=== PATIENT | male | born 1985 | race Caucasian/White ===

== ENCOUNTER 2020-07-11 11:00 | Outpatient (RCR) | payer MEDICAID, OTHER, SELFPAY ==
--- NOTE | 2020-06-06 09:19 | STOPEVAL ---
SPEECH THERAPY INITIAL EVALUATION: Thank you for referring Raghav Doran to [facility].?Overall, the pt presents with severe fluency/stutter disorder. Therapy is recommended x2 week 6 ; however, at this time, he is scheduled to be seen for therapy?1x/week due to job schedule. If schedule changes pt will attend the recommended x2/week x 6 weeks. Please review, sign, date and return this plan of care ALEX. I agree with and certify that the following plan of care is medically necessary. Referring Physician Date Attending Provider: Ernesto Noel, * Outpatient Evaluation Start: 06/03/20 13:14 Freq: Status: Active Protocol: Document 06/03/20 11:00 GEORGE (Rec: 06/04/20 17:26 [email or web address] Therapy Assessment Status Assessment Status Assessment Status Evaluation Outpatient Past Medical History Psychosocial History Hx Recent Lifestyle Changes Yes: released from correction 2019 Hx Other Psychiatric Disorders Yes: drug abuse Evaluation Information Problem Diagnosis Fluency disorder/stuttering Onset childhood but worsening Additional Evaluation Detail Pt reports having been a stutterer since childhood; however, states that it appears to be worsening. Pt was recently released from correction on May having been incarcerated related to drugs. Pt states he wants to improve his life and lifestyle and is currently staying at [facility], a [facility] in [place], [place]. He reports that he must participate in group sessions that require him to speak as well as read to 12-13 people. He states that he feels humiliated and anxious when doing so due to the increasing severity of his stuttering. Pt reports drug abuse starting at 15 years old, dropping out of school at 17 and subsequently in and out of correction 3-4 times. During incarceration, pt completed his GED and achieved 37 college credits. 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
--- NOTE | 2020-07-08 13:10 | PCSTNOTE ---
Patient did not show up for scheduled appointment on 07-04-20; upon calling the [facility] where pt lives, ST was informed that there was somewhat of an emergency at the house and he couldn't make it. Pt's next appt was confirmed and verified that he would be here.
--- NOTE | 2020-07-11 12:39 | PCSTNOTE ---
Patient did not show up for scheduled appointment this date. Pt was called at the [facility] where he lives. He stated he was having problems there and he has had to talk to his counselor the past 2 Fridays. He was informed that he has an appt next Tuesday. Pt stated, I will definitely be there
--- NOTE | 2020-07-21 16:18 | PCSTNOTE ---
Patient did not show up for scheduled appointment on 07-18-20. Pt called after appointment wanting to speak to this RN RESIDENTIAL whom was not present. Upon calling pt back, he did not answer phone; phone did not have a voicemail.
--- NOTE | 2020-07-23 10:25 | PCSTNOTE ---
Another attempt was made by ST to contact the pt regarding continuing therapy. Contact was attempted via the phone # pt left for call back [phone]. Pt again did not answer and with no voicemail available.
--- NOTE | 2020-07-23 10:28 | PCSTNOTE ---
SPEECH THERAPY DISCHARGE: Attending Provider: Ernesto Noel, Patient:Raghav Doran Date of :1985 Patient has not returned for any further treatments since 06/27/2020, attempts have been made to contact the pt in order to continue therapy;however, pt has not answered calls. Therefore, he will be discharged at this time. Patient?s initial visit was on 06/03/2020 11:00 and he had a total of 3 visits. The goals have not been met. Thank you for referring this patient to [facility]. Please review, sign, date and return this discharge summary ALEX. I have been updated about the patient's current status and I agree with discharge from the above service at this time. Referring Physician Date
== END 2020-07-23 12:47 | disposition home or self-care (01) ==
LOC: ANHST 11:00
PROVIDERS: PCP Internal Medicine; Visit Provider Internal Medicine
DX: F80.81 Childhood onset fluency disorder (principal)
CPT/HCPCS: 92507; 92521

== ENCOUNTER 2020-10-01 15:53 | Emergency (ER) | payer BC, SELFPAY ==
--- NOTE | ~2020-10-01 | XR_ITS ---
EXAMINATION: XR chest 1V portable INDICATION: Cough and shortness of breath TECHNIQUE: Portable AP chest at 1643 hours COMPARISON: None available FINDINGS: Lung volumes are low. There are patchy bilateral airspace opacities. There is no pleural ef fusion or pneumothorax. The cardiomediastinal silhouette is normal. IMPRESSION: 1. Diffuse lung disease, consistent with pneumonia and/or pulmonary edema and/or atelectasis. Reviewed, dictated and finalized at location A. [employer] IMPRESSION: 1. Diffuse lung disease, consistent with pneumonia and/or pulmonary edema and/o r atelectasis.
[2020-10-01 16:27] VITALS: BP 139/92; PULSE 98; RESP 18; TEMP 36.3; O2SAT 97
--- NOTE | 2020-10-01 17:34 | PC.NURSE ---
PT AMBULATED, MAINTAINED OXYGEN SATURATION OF 96-98%. PA NOTIFIED.
[2020-10-01] MEDS: ALBUTEROL SULFATE (*SP) AEROSOL 1 PUFF 6 PUFF INHALATION (17:51)
[2020-10-01] MEDS: KETOROLAC 15 MG/ML VIAL (*BKC) IV PUSH (18:08)
[2020-10-01] MEDS: SODIUM CHLORIDE 0.9% IV 1,000 ML 999 ML IV CONT (18:09)
[2020-10-01 18:16] LABS: Basophils Percent Auto 0.6 % (0.2-1.2); Eosinophils Absolute Auto 0.1 K/mm3 (0-0.3); Eosinophils Percent Auto 1.5 % (0-4.4); Hematocrit 50.5 % (42.0-52.0); Hemoglobin 16.9 g/dL (14.0-18.0); Immature Granulocyte Absolute 0.03 K/mm3 (0.00-0.031); Immature Granulocyte Percent A 0.4 % (0-0.5); Lymphocytes Absolute Auto 2.15 K/mm3 (0.9-3.2); Lymphocytes Percent Auto 31.4 % (18.3-44.2); Mean Corpuscular HGB Conc 33.5 g/dl (32-36); Mean Corpuscular Hemoglobin 32.1 pg (26-34); Mean Corpuscular Volume 95.8 fl (80-100); Mean Platelet Volume 9.3 fl (7.4-10.4); Monocytes Absolute Auto 0.8 K/mm3 (0.1-0.6); Monocytes Percent Auto 10.9 % (2.6-8.5); Neutrophils Absolute Auto 3.8 K/mm3 (1.3-6.7); Neutrophils Percent Auto 55.2 % (45.5-73.1); Platelet Count Result 225 k/mm3 (150-375); Red Blood Count 5.27 M/mm3 (4.6-6.20); Red Cell Distribution Width 12.6 % (11.5-14.5); White Blood Count 6.9 K/mm3 (4.5-10.0)
[2020-10-01 18:23] LABS: Alanine Aminotransferase 65 U/L (4-50); Albumin Level 4.3 g/dL (3.5-5.1); Alkaline Phosphatase 126 U/L (38-126); Anion Gap 6 mmol/L (8-16); Aspartate Amino Transferase 45 U/L (17-59); Bilirubin,Total 0.3 mg/dL (0.2-1.3); Blood Urea Nitrogen 15 mg/dL (9-20); Calcium 9.4 mg/dL (8.4-10.2); Carbon Dioxide 31 mmol/L (22-30); Chloride 103 mmol/L (98-107); Estimated CRCL calculation 114 ml/min; Estimated Glomerular Filt Rate > 60; Glucose 120 mg/dL (75-110); Potassium 4.1 mmol/L (3.4-5.0); Sodium 140 mmol/L (137-145)
[2020-10-01 18:30] VITALS: BP 144/74; PULSE 101; RESP 17; O2SAT 96
--- NOTE | 2020-10-01 18:42 | ED.GENADULT ---
HPI - General Adult General Chief complaint: Shortness of Breath/Dyspnea Stated complaint: fever, SOB, body aches Time Seen by Provider: 10/01/20 16:26 Source: patient Mode of arrival: ambulatory Limitations: no limitations History of Present Illness HPI narrative: Patient presents with chief complaint of shortness of breath, fever, body aches over the past week. Patient states that he has been exposed to Covid both in his home and at work. Patient states that as a child he did have asthma but he has not had issues as an adult. He denies known COPD. Patient reports that he is a smoker. Patient reports he is also has some nausea and stomach upset for which she took over prescription of Reglan which helped but now he is out. Patient denies chest pain, syncope, pain with inspiration. Related Data Allergies Allergy/AdvReac Type Severity Reaction Status Date / Time trazodone Allergy Unknown Verified 10/01/20 16:29 Review of Systems Review of Systems: Narrative: CONSTITUTIONAL: Reports fever, chills, body aches and sweats. EYES: Denies visual changes, redness, or discharge. ENT: Denies rhinorrhea, congestion, sore throat, or otalgia. CARDIOVASCULAR: Denies chest pain, palpitations, or edema. RESPIRATORY: Reports cough or dyspnea. GASTROINTESTINAL: Denies abdominal pain, nausea, vomiting, or diarrhea. GENITOURINARY: Denies dysuria or hematuria. SKIN: Denies rash or itching. MUSCULOSKELETAL: Denies back pain, joint pain, or myalgia. NEUROLOGIC: Denies headache, numbness, dizziness, or weakness. PSYCHIATRIC: Denies anxiety or depression. [facility] Social History Social History (Updated 10/01/20 @ 18:45 by Ok Ledesma PA-C) Smoking status: Current every day smoker Gender identity (if verbalized by the patient): Male Exam Narrative: Exam Narrative: GENERAL: Well-appearing, well-nourished, and is flushed in appearance. HEAD: Normocephalic, atraumatic. EYES: PERRLA and EOMI. NECK: Supple. No adenopathy or masses. CHEST: Breath sounds are tight diffusely. No tachypnea. Patient taking shallow breaths. No wheezes rales or rhonchi HEART: Regular rate and rhythm. EXTREMITIES: Normal range of motion. No edema. SKIN: Warm, dry, no rash. NEURO: No focal deficits. Alert and oriented x3. PSYCH: Normal mood and affect. Course Vital Signs Vital signs: Vital Signs Temperature 97.3 F L 10/01/20 16:27 Pulse Rate 98 10/01/20 16:27 Respiratory Rate 18 10/01/20 16:27 Blood Pressure 139/92 H 10/01/20 16:27 Pulse Oximetry 97 10/01/20 16:27 Temperature 97.3 F L 10/01/20 16:27 Pulse Rate 101 H 10/01/20 18:30 Respiratory Rate 17 10/01/20 18:30 Blood Pressure 144/74 H 10/01/20 18:30 Pulse Oximetry 96 10/01/20 18:30 Medical Decision Making MDM Narrative Medical decision making narrative: Patient does not have wheezing however his breath sounds are tight in his chest. He has had great improvement with air movement after albuterol and Spiriva treatment. With his history of smoking and stating he has had childhood asthma I am concerned that he may have unfounded COPD due to irregular with PCP visits. As well as how he has responded to the albuterol and steroid treatment. Patient will be discharged. Asked to suspect Covid I am also concerned for underlying bacterial pneumonia especially with patient's tendency to take shallow breaths. Patient is reporting great resolution in his SOB. He reports great improvement in his shortness of breath with the albuterol and steroid treatments. He states he feels comfortable going home. Patient instructed to quarantine as he is a Covid person under investigation. Patient needs to follow-up with his primary care and quarantine as instructed by the health department. Differential Diagnosis Differential Diagnosis: Covid, pneumonia, COPD exacerbation Vital Signs Vital Signs: Vital Signs Temperature 97.3 F L 10/01/20 16:27 Pulse Rate 98 10/01/20 16:27 Respiratory Rat
[2020-10-01] MEDS: methylPREDNISolone SOD SUCC 125 MG VIAL IV PUSH (19:02)
[2020-10-03 01:27] LABS: SARS-CoV-2 RNA PCR Positive
== END 2020-10-01 19:15 | disposition home or self-care (01) ==
PROVIDERS: Physician Assistant; Emergency Provider Emergency Medicine; PCP Internal Medicine
DX: U07.1 COVID-19 (principal); J12.82 Pneumonia due to coronavirus disease 2019; J45.901 Unspecified asthma with (acute) exacerbation; F17.210 Nicotine dependence, cigarettes, uncomplicated
CPT/HCPCS: 36415; 71045; 80053; 85025; 87804; 94640; 96365; 96375; 99284; A9270; C9803; J0131; J1885; J2930; J7030; U0003; U0005

== ENCOUNTER 2020-10-05 14:29 | Emergency (ER) | payer BC, SELFPAY ==
--- NOTE | ~2020-10-05 | XR_ITS ---
EXAMINATION: XR chest 1V portable EXAM DATE: 10/05/2020 15:43 INDICATION: COVID 19. Shortness of breath and worsening symptoms. Cough. TECHNIQUE: Portable AP frontal chest x-ray was obtained. Comparison is made to prior examination from 10/01/2020. FINDINGS: No confluent consolidation, pneumothorax or pleural effusion suspected. Cardiac silhouett e is prominent but magnified on this AP technique. The bones and soft tissues are unremarkable. IMPRESSION: No acute cardiopulmonary findings. Reviewed, dictated and finalized at location A. [facility] [employer]
[2020-10-05 14:49] VITALS: BP 124/78; PULSE 84; RESP 17; TEMP 37.1; O2SAT 98
--- NOTE | 2020-10-05 14:57 | ECG_ITS ---
Measurements Intervals Burton Rate: 79 P: 29 IN: 181 QRS: 7 QRSD: 89 T: 2 QT: 349 QTc: 401 Interpretive Statements SINUS RHYTHM MINIMAL Q WAVES- HIGH LATERAL LEADS BASELINE ARTIFACT- I, III, AVL, V1, V4 BORDERLINE ECG Electronically Signed On 10-05-2020 16:27:25 [employer]ICE PRESIDENT [employer] by Jameson Negrete D.O.
[2020-10-05] MEDS: SODIUM CHLORIDE 0.9% IV 1,000 ML 999 ML IV CONT (15:09)
[2020-10-05 15:16] LABS: Basophils Percent Auto 0.4 % (0.2-1.2); Eosinophils Absolute Auto 0.1 K/mm3 (0-0.3); Eosinophils Percent Auto 1.8 % (0-4.4); Hematocrit 47.3 % (42.0-52.0); Hemoglobin 16.1 g/dL (14.0-18.0); Immature Granulocyte Absolute 0.03 K/mm3 (0.00-0.031); Immature Granulocyte Percent A 0.5 % (0-0.5); Lymphocytes Absolute Auto 1.56 K/mm3 (0.9-3.2); Lymphocytes Percent Auto 27.4 % (18.3-44.2); Mean Corpuscular Hemoglobin 32.2 pg (26-34); Mean Corpuscular Volume 94.6 fl (80-100); Mean Platelet Volume 9.7 fl (7.4-10.4); Monocytes Absolute Auto 0.5 K/mm3 (0.1-0.6); Monocytes Percent Auto 8.3 % (2.6-8.5); Neutrophils Absolute Auto 3.5 K/mm3 (1.3-6.7); Neutrophils Percent Auto 61.6 % (45.5-73.1); Platelet Count Result 192 k/mm3 (150-375); Red Cell Distribution Width 12.5 % (11.5-14.5); White Blood Count 5.7 K/mm3 (4.5-10.0)
[2020-10-05 15:26] LABS: Partial Thromboplastin Time 30.4 SECONDS (22.3-36.8); Prothrombin Time 13.8 Seconds (11.1-14.7)
[2020-10-05 15:28] LABS: Lactic Acid Reflex 1.4 mmol/L (0.7-2.1)
[2020-10-05 15:29] LABS: Anion Gap 4 mmol/L (8-16); Blood Urea Nitrogen 14 mg/dL (9-20); Calcium 8.5 mg/dL (8.4-10.2); Carbon Dioxide 29 mmol/L (22-30); Chloride 105 mmol/L (98-107); Estimated CRCL calculation 118 ml/min; Estimated Glomerular Filt Rate > 60; Glucose 126 mg/dL (75-110); Potassium 3.9 mmol/L (3.4-5.0); Sodium 138 mmol/L (137-145)
[2020-10-05 15:31] LABS: CRP 1.4 mg/dL (<1.0)
[2020-10-05 15:57] LABS: Alanine Aminotransferase 66 U/L (4-50); Alkaline Phosphatase 107 U/L (38-126); Aspartate Amino Transferase 41 U/L (17-59); Bilirubin,Total 0.5 mg/dL (0.2-1.3)
[2020-10-05 16:06] VITALS: BP 129/82; PULSE 72; RESP 20; O2SAT 97
--- NOTE | 2020-10-05 16:22 | ED.GENADULT ---
HPI - General Adult General Chief complaint: Shortness of Breath/Dyspnea Stated complaint: covid +, SOB Time Seen by Provider: 10/05/20 14:50 Source: patient and old records reviewed Mode of arrival: ambulatory Limitations: no limitations History of Present Illness HPI narrative: Patient is a 35-year-old male who presents to emergency department for evaluation of continued shortness of breath body aches intermittent fever has been Covid symptoms for 10 days patient denies diarrhea does note some posttussive emesis patient on arrival to emergency department in no distress was seen in the ER in the last several days was cleared and sent home with inhaler and recommendations for symptom management. On arrival patient in no distress does not appear uncomfortable Related Data Allergies Allergy/AdvReac Type Severity Reaction Status Date / Time trazodone Allergy Unknown Verified 10/05/20 14:49 Review of Systems Review of Systems: All systems reviewed & are unremarkable except as noted in HPI and below PMFSH Social History Social History Smoking status: Current every day smoker Gender identity (if verbalized by the patient): Male Exam Narrative: Exam Narrative: GENERAL: Well-appearing, obese, and in no acute distress. HEAD: Normocephalic, atraumatic. EYES: PERRLA and EOMI. ENT: Nares clear, no rhinorrhea or epistaxis. Mucous membranes moist. CHEST: Clear to auscultation. No respiratory distress. No wheezes rales or rhonchi HEART: Regular rate and rhythm. No murmur heard. Normal peripheral pulses. ABDOMEN: Soft, nontender, nondistended EXTREMITIES: Normal range of motion. No edema. SKIN: Warm, dry, no rash. NEURO: No focal deficits. Alert and oriented x3. PSYCH: Normal mood and affect. Course Course Emergency Course: Patient presented with Covid positive symptoms note obvious distress no pneumonia or other high risk findings no hypoxemia no pneumonia felt appropriate for outpatient reevaluation Vital Signs Vital signs: Vital Signs Temperature 98.7 F 10/05/20 14:49 Pulse Rate 84 10/05/20 14:49 Respiratory Rate 17 10/05/20 14:49 Blood Pressure 124/78 10/05/20 14:49 Pulse Oximetry 98 10/05/20 14:49 Temperature 98.7 F 10/05/20 14:49 Pulse Rate 72 10/05/20 16:06 Respiratory Rate 20 10/05/20 16:06 Blood Pressure 129/82 10/05/20 16:06 Pulse Oximetry 97 10/05/20 16:06 Medical Decision Making MDM Narrative Medical decision making narrative: ABCs and vital signs intact and stable felt appropriate to be discharged home for further evaluation on outpatient basis given reasons to return normal vital signs no distress Vital Signs Vital Signs: Vital Signs Temperature 98.7 F 10/05/20 14:49 Pulse Rate 84 10/05/20 14:49 Respiratory Rate 17 10/05/20 14:49 Blood Pressure 124/78 10/05/20 14:49 Pulse Oximetry 98 10/05/20 14:49 Temperature 98.7 F 10/05/20 14:49 Pulse Rate 72 10/05/20 16:06 Respiratory Rate 20 10/05/20 16:06 Blood Pressure 129/82 10/05/20 16:06 Pulse Oximetry 97 10/05/20 16:06 Lab Data Result diagrams: 10/05/20 15:10 10/05/20 15:10 Labs: Lab Results 10/05/20 10/05/20 10/05/20 Range/Units 15:10 15:10 15:10 WBC 5.7 (4.5-10.0) K/mm3 RBC 5.00 (4.6-6.20) M/mm3 Hgb 16.1 (14.0-18.0) g/dL Hct 47.3 (42.0-52.0) % MCV 94.6 (80-100) fl MCH 32.2 (26-34) pg MCHC 34.0 (32-36) g/dl RDW 12.5 (11.5-14.5) % Plt Count 192 (150-375) k/mm3 MPV 9.7 (7.4-10.4) fl Immature Gran % (Auto) 0.5 (0-0.5) % Neut % (Auto) 61.6 (45.5-73.1) % Lymph % (Auto) 27.4 (18.3-44.2) % Addison % (Auto) 8.3 (2.6-8.5) % Eos % (Auto) 1.8 (0-4.4) % Baso % (Auto) 0.4 (0.2-1.2) % Lymph # (Auto) 1.56 (0.9-3.2) K/mm3 Addison # (Auto) 0.5 (0.1-0.6) K/mm3 Eos # (Auto) 0.1 (0-0.3) K/mm3 Baso # (Auto) 0.0
[2020-10-05 17:37] VITALS: BP 126/82; PULSE 70; RESP 20; O2SAT 99
== END 2020-10-05 17:40 | disposition home or self-care (01) ==
PROVIDERS: Emergency Medicine Emergency Medical Services; Emergency Provider Emergency Medicine; PCP Internal Medicine
DX: U07.1 COVID-19 (principal); F17.200 Nicotine dependence, unspecified, uncomplicated
CPT/HCPCS: 36415; 71045; 80048; 80076; 83605; 85025; 85610; 85730; 86140; 93005; 96360; 99284; J7030

== ENCOUNTER 2020-10-28 12:42 | Emergency (ER) | payer BC, SELFPAY ==
--- NOTE | 2020-10-28 12:46 | ED.GENADULT ---
HPI - General Adult General Chief complaint: Eye Problems Stated complaint: Eye Swollen Time Seen by Provider: 10/28/20 12:46 Source: patient Mode of arrival: ambulatory Limitations: no limitations History of Present Illness HPI narrative: 35-year-old male patient presents to the [facility] with complaints of left eye protection at the time. Patient also states that the right eye kind of feels like there is a piece of sand in there and is a little gritty and itchy. Patient denies taking thing for the pain. Related Data Allergies Allergy/AdvReac Type Severity Reaction Status Date / Time trazodone Allergy Unknown Verified 10/05/20 14:49 Review of Systems Review of Systems: Narrative: CONSTITUTIONAL: Denies fever, chills, or sweats. EYES: Positive left eye visual changes, redness, and dry yellow discharge. Positive irritation to the right eye as well. ENT: Denies rhinorrhea, congestion, sore throat, or otalgia. CARDIOVASCULAR: Denies chest pain, palpitations, or edema. RESPIRATORY: Denies cough or dyspnea. GASTROINTESTINAL: Denies abdominal pain, nausea, vomiting, or diarrhea. GENITOURINARY: Denies dysuria or hematuria. SKIN: Denies rash or itching. MUSCULOSKELETAL: Denies back pain, joint pain, or myalgia. NEUROLOGIC: Denies headache, numbness, or weakness. PSYCHIATRIC: Denies anxiety or depression. [facility] Social History Social History Smoking status: Current every day smoker Gender identity (if verbalized by the patient): Male Comments At the time of my signature I agree with nursing past medical history, surgical, social, and family history. There is no relevant family history pertinent to the presenting complaint. Exam Narrative: Exam Narrative: GENERAL: Well-appearing, well-nourished, and in no acute distress. HEAD: Normocephalic, atraumatic. EYES: PERRLA and EOM intact without limitation or complaint of pain, no periorbital soft tissue swelling ,no erythema, warmth or tenderness noted, no obvious deformity. crusting and yellow discharge noted to the outer and inner canthi on test of the left eye. No swelling.no tearing or draining.No photophobia. No nystagmus No FB or lesion on lid eversion. Corneas grossly clear, no obvious FB or hyphens/hypopyon. No injection to sclera. Lids and lashes clear. ENT: Nares clear, no rhinorrhea or epistaxis. Mucous membranes moist. NECK: Supple. No lymphadenopathy CHEST: Clear to auscultation. No respiratory distress. HEART: Regular rate and rhythm. No murmur heard. Normal peripheral pulses. ABDOMEN: Soft, nontender, nondistended, normal active bowel sounds. EXTREMITIES: Normal range of motion. No edema. SKIN: Warm, dry, no rash. NEURO: No focal deficits. Alert and oriented x3. Course Vital Signs Vital signs: Vital Signs Temperature 36.9 C 10/28/20 13:00 Pulse Rate 105 H 10/28/20 13:00 Respiratory Rate 18 10/28/20 13:00 Blood Pressure 145/95 H 10/28/20 13:00 Pulse Oximetry 100 10/28/20 13:00 Temperature 36.9 C 10/28/20 13:00 Pulse Rate 105 H 10/28/20 13:00 Respiratory Rate 18 10/28/20 13:00 Blood Pressure 145/95 H 10/28/20 13:00 Pulse Oximetry 100 10/28/20 13:00 Vital signs reviewed. The patient has been informed that they may have pre-hypertension or Hypertension based on a BP reading in the department. I recommend that the patient call the primary care provider listed on their discharge instructions or a physician of their choice this week to arrange follow up for further evaluation of possible pre-hypertension or Hypertension Procedures Other Procedure Procedure 1: Other Procedure: 1 drop of tetracaine was placed in bilateral eyes. Fluorescein was used used in bilateral eyes. The bilateral eyes were examined under the Ledesma lamp. There is obvious corneal abrasion noted to the left eye at the 1:00 area. No obvious corneal abrasions noted to the right eye. The bilateral eyes were
[2020-10-28 13:00] VITALS: BP 145/95; PULSE 105; RESP 18; TEMP 36.9; O2SAT 100
== END 2020-10-28 13:26 | disposition home or self-care (01) ==
PROVIDERS: Emergency Provider Nurse Practitioner Family
DX: S05.02XA Injury of conjunctiva and corneal abrasion without foreign body, left eye, initial encounter (principal); X58.XXXA Exposure to other specified factors, initial encounter; F17.200 Nicotine dependence, unspecified, uncomplicated
CPT/HCPCS: 99213; A9270; G0463